=== PATIENT | female | born 1990 | race Caucasian/White ===

== ENCOUNTER 2019-03-06 01:20 | Observation (INO) ==
[2019-03-06] MEDS ORDERED: 0.9 % Sodium Chloride 1,000 ML IVC SCH (04:45)
[2019-03-06] MEDS ORDERED: OXYCODONE Oral CONC 10 MG/0.5 ML ORAL.SYG SL PRN ×2 (05:00→16:21)
--- NOTE | 2019-03-06 06:40 | Acute Care Surgery H&P ---
<Timoteo Mederos N - Last Filed: 03/06/19 08:24> Date of Encounter: 03/06/19 Time of Encounter: 08:24 Assessment and Plan (1) Acute cholecystitis Current Visit: No Status: Acute -28-year-old female admitted who presented with abdominal pain, nausea, and vomiting was found to have evidence for acute cholecystitis on CT scan -Plan for laparoscopic cholecystectomy today -Patient has been NPO -Lab workup from outside hospital reveals hypokalemia at 3.2, will replete with IV potassium History of Present Illness Chief complaint: abdominal pain, nausea, vomiting HPI: Ms. Wolf is a 28 year old female who was transferred from outside hospital due to concerns for acute cholecysitits. Patient presented to the emergency department with a one-day history of abdominal pain, nausea, and vomiting. She states that this had happened approximately one week ago, however this episode did not remit. Patient reports that her pain is worse after eating. She has had constant nausea and has vomited 3-4 times. In the emergency department patient was found to be hemodynamically stable. Lab workup was generally unremarkable aside from mild anemia which is near her baseline. A CT abdomen annd pelvis was performed which was significant for gallbladder wall edema versus pericholecystic fluid raising concern for cholecystitis. Patient was transferred to [facility] for surgical evaluation and management. Past Med Surg Social Fam HX - Past Medical History Medical history: GERD, other Additional medical history: Genital Herpes, chronic back pain Psychiatric history: anxiety, bipolar, depression - Past Surgical History Additional surgical history: Filshie Clip - Social History Smoking Status: Current every day smoker Smokeless Tobacco Status: No Alcohol use: rarely Drug use: marijuana Medications and Allergies Acyclovir [Zovirax] 400 mg PO BID 09/13/16 [History] Allergy/AdvReac Type Severity Reaction Status Date / Time ciprofloxacin [From Cipro] Allergy Rash Verified 03/05/19 23:42 Review of Systems All systems PM: The remainder of the systems were reviewed and are negative - Constitutional no chills, no fever(s) - Cardiovascular no chest pain - Respiratory no dyspnea - Gastrointestinal abdominal pain, nausea, vomiting, no hematochezia, no melena - Integumentary no rash General Surgery Exam Initial Vital Signs Temp Pulse Resp BP Pulse Ox 98.4 F 50 16 105/71 99 03/06/19 05:20 03/06/19 05:20 03/06/19 05:20 03/06/19 05:20 03/06/19 05:20 - General physical appearance well developed, well nourished - Eyes PERRL, normal ocular movement - ENT normal pinna, normal nares - Neck trachea midline, no venous distension - Respiratory normal expansion, normal respiratory effort - Cardiovascular Cardiovascular exam: Present: RRR - Abdomen Abdomen general surgery: Present: bowel sounds present, soft, tender (Mild tenderness in the right upper quadrant without guarding or rigidity) - Integumentary Integumentary general surgery: Present: warm and dry - Musculoskeletal Present: normal posture - Psychiatric Psychiatric general surgery: Present: A&Ox3 Results - Labs All other labs normal. <Héctor Nielson F - Last Filed: 03/06/19 11:06> Date of Encounter: 03/06/19 History of Present Illness HPI: Ms. Wolf is a 28 year old female Review of Systems All systems PM: The remainder of the systems were reviewed and are negative General Surgery Exam Initial Vital Signs Temp Pulse Resp BP Pulse Ox 98.4 F 50 16 105/71 99 03/06/19 05:20 03/06/19 05:20 03/06/19 05:20 03/06/19 05:20 03/06/19 05:20 Results - Labs All other labs normal. - Attending Attestation I examined this patient and my medical decision-making was reviewed with the Resident Physician. I agree with the documented findings, disposition and treatment plan as described except to the extent set forth below.
[2019-03-06] MEDS ORDERED: Potassium Chloride 20 MEQ, Lidocaine 1% 2 ML in D5% in Water 250 ML IVPB ONE (06:56)
[2019-03-06] MEDS ORDERED: Ondansetron 4 MG/2 ML VIAL IVP PRN ×2 (08:00→16:21)
[2019-03-06] MEDS: cefOXitin 2,000 MG in Water for inj. (sterile) 20 ML 20 ML IVP SCH ×2 (08:12→17:01)
[2019-03-06] MEDS: Ipratropium/Albuterol Neb 3 ML IH SCH ×2 (11:12→11:57)
--- NOTE | 2019-03-06 11:24 | Discharge Summary ---
<Virginia Mcdonald - Last Filed: 03/06/19 11:21> Date of Encounter: 03/06/19 - Discharge Diagnosis (1) Acute cholecystitis Priority: Primary Status: Acute (2) Smoking history Priority: Secondary Status: Chronic General Surgery Exam Initial Vital Signs Temp Pulse Resp BP Pulse Ox 98.4 F 50 16 105/71 99 03/06/19 05:20 03/06/19 05:20 03/06/19 05:20 03/06/19 05:20 03/06/19 05:20 - Hospital Course Hospital course: Ms. Wolf is a 28 year old female Time spent discussing smoking cessation with patient: 3 to 10 minutes - Time Spent with Patient Total time spent providing and/or coordinating discharge services: - Discharge Medications Prescriptions: New Docusate Sodium [Colace] 100 mg PO BID PRN #30 capsule PRN Reason: Contstipation Ibuprofen 800 mg PO Q8H PRN #30 tablet PRN Reason: Postsurgical pain OxyCODONE/APAP 5/325 [Percocet 5/325 MG] 1 each PO Q6HR PRN 7 Days #28 tablet PRN Reason: Pain Ondansetron ODT [Zofran ODT] 4 mg SL Q4HR PRN #15 tab.rapdis PRN Reason: Postsurgical nausea Continued Sulindac 200 mg PO TID PRN PRN Reason: Pain Acyclovir [Zovirax] 400 mg PO BID Home Medications: Acyclovir [Zovirax] 400 mg PO BID 09/13/16 [History] Docusate Sodium [Colace] 100 mg PO BID PRN #30 capsule 03/06/19 [Rx] Ibuprofen 800 mg PO Q8H PRN #30 tablet 03/06/19 [Rx] Ondansetron ODT [Zofran ODT] 4 mg SL Q4HR PRN #15 tab.rapdis 03/06/19 [Rx] OxyCODONE/APAP 5/325 [Percocet 5/325 MG] 1 each PO Q6HR PRN 7 Days #28 tablet 03/06/19 [Rx] Sulindac 200 mg PO TID PRN 03/06/19 [History] Allergies/Adverse Reactions: Allergy/AdvReac Type Severity Reaction Status Date / Time ciprofloxacin [From Cipro] Allergy Rash Verified 03/06/19 12:49 Date of admission: 03/06/19 04:00 Primary care physician: Angi Núñez CNP Consults: 03/06/19 04:43 Consult to Nutrition [CONS] Routine Comment: Consulting Provider: NUTRITION Reason for Dietary Consult: MST Score Discharging clinician: Héctor Vega Anticipated date of discharge: 03/06/19 - Patient Status Disposition: Home, Self-Care Condition: Good Functional capacity at discharge: independent ambulation Overall status at discharge: patient is progressing back to baseline - Discharge Instructions Instructions: Laparoscopic Cholecystectomy (DC) Follow Up With: Kirill Schroeder MD [Partnered Physician] - 03/27/19 8:30 am Angi Núñez CNP [Primary Care Provider] - - Diet and Activity Activity: increase activity as tolerated Diet: advance to your usual diet <Héctor Nielson - Last Filed: 03/06/19 15:54> Orders not resulted at time of discharge: Pending orders 03/06/19 15:01 Surgical Pathology [PTH] Routine Date of Encounter: 03/06/19 Time of Encounter: 15:50 General Surgery Exam Initial Vital Signs Temp Pulse Resp BP Pulse Ox 98.4 F 50 16 105/71 99 03/06/19 05:20 03/06/19 05:20 03/06/19 05:20 03/06/19 05:20 03/06/19 05:20 - Hospital Course Hospital course: Ms. Wolf is a 28 year old female - Time Spent with Patient Total time spent providing and/or coordinating discharge services: Date of admission: 03/06/19 04:00 Primary care physician: Angi Núñez CNP Consults: 03/06/19 04:43 Consult to Nutrition [CONS] Routine Comment: Consulting Provider: NUTRITION Reason for Dietary Consult: MST Score
--- NOTE | 2019-03-06 13:07 | Anesthesia Evaluation PreOp ---
Date of Encounter: 03/06/19 Time of Encounter: 13:00 - Past History Planned Operation: Lap Cholecystectomy Cardiac History: Denies any Significant Hx Pulmonary History: Smoker CIRCUS TRAINER History: Denies Any Significant HX Other Medical History: GERD, Other (Anxiety) Anesthesia History: No Prior Anesthetic Complications : No Test: Negative Alcohol Use: rarely Drug use: marijuana Medications and Allergies Acyclovir [Zovirax] 400 mg PO BID 09/13/16 [History] Docusate Sodium [Colace] 100 mg PO BID PRN #30 capsule 03/06/19 [Rx] Ibuprofen 800 mg PO Q8H PRN #30 tablet 03/06/19 [Rx] Ondansetron ODT [Zofran ODT] 4 mg SL Q4HR PRN #15 tab.rapdis 03/06/19 [Rx] OxyCODONE/APAP 5/325 [Percocet 5/325 MG] 1 each PO Q6HR PRN 7 Days #28 tablet 03/06/19 [Rx] Sulindac 200 mg PO TID PRN 03/06/19 [History] Allergy/AdvReac Type Severity Reaction Status Date / Time ciprofloxacin [From Cipro] Allergy Rash Verified 03/06/19 12:49 - Meds/Allergy Pre-op Review Medications Reviewed: Yes Allergies Reviewed: Yes Beta Blockers on Current Med List: No Anesthesia Results - Labs Laboratory Tests 03/05/19 03/06/19 03/06/19 23:51 00:00 00:00 Hgb 10.2 L Hct 32.5 L Plt Count 357 Sodium 135 L Potassium 3.2 L Urine Test Negative Anesthesia Exam O2 Sat Height 1.7 m Weight 71.6 kg O2 Sat by Pulse Oximetry 100 O2 Sat by Pulse Oximetry 98 O2 Sat by Pulse Oximetry 99 Vital Signs Temp Pulse Resp BP Pulse Ox 98.4 F 50 16 105/71 99 03/06/19 05:20 03/06/19 05:20 03/06/19 05:20 03/06/19 05:20 03/06/19 05:20 Height: 5'7 Weight: 157 lbs NPO (# of Hours): MN Pain Scale: 0 - HEENT Pupil (Motor): Pupils equal, EOMI Mallampati: II Teeth: Edentulous (no upper dentition) Oral Opening: Greater than 3 - CIRCUS TRAINER LOC: Oriented CIRCUS TRAINER Motor: Normal RUE, Normal LUE, Normal RLE, Normal LLE, Normal Face CIRCUS TRAINER Sensory: Normal: RUE, LUE, RLE, LLE, Face - Cardiac Rhythm: Regular Murmur: None JVD: No Carotid Bruit: No - Pulmonary Breath Sounds: bilateral Clear Respiratory Effort: Symmetrical Anesthesia Assess/Plan ASA Score: 2 Level of consciousness: Cooperative, Oriented Anesthetic Plan: General Autologous Blood: No Monitoring Plan: Standard Monitors Recovery Plan: PACU (Discussed GA, agrees to proceed)
[2019-03-06] MEDS ORDERED: *HR* HYDROmorphone (PF) 1 MG/ML SYRINGE IVP PRN (13:08)
[2019-03-06] MEDS ORDERED: *HR* Labetalol 20 MG/4 ML SYRINGE IVP PRN (13:08)
[2019-03-06] MEDS ORDERED: *HR* OxyCODONE Immed Rel 5 MG TABLET PO PRN (13:08)
[2019-03-06] MEDS ORDERED: Famotidine 20 MG/2 ML VIAL ONE (13:11)
[2019-03-06] MEDS ORDERED: Acetaminophen IV 1,000 MG/100 ML INFUS..BTL ONE (13:11)
[2019-03-06] MEDS ORDERED: Lidocaine -MPF 4% 5 ML AMPUL ONE (13:16)
[2019-03-06] MEDS ORDERED: *HR* Midazolam HCl 5 MG/5 ML VIAL IVP ONE (13:25)
[2019-03-06] MEDS ORDERED: *HR* Midazolam HCl 2 MG/2 ML VIAL ONE (13:25)
[2019-03-06] MEDS ORDERED: *HR* FentaNYL (PF) 100 MCG/2 ML VIAL ONE (13:26)
[2019-03-06] MEDS ORDERED: *HR* Propofol 200 MG/20 ML VIAL IVP ONE (13:26)
[2019-03-06] MEDS ORDERED: Lidocaine -MPF 2% 2 ML VIAL ONE (13:28)
[2019-03-06] MEDS ORDERED: Ondansetron 4 MG/2 ML VIAL ONE (13:29)
[2019-03-06] MEDS ORDERED: *HR* Rocuronium Bromide 50 MG/5 ML VIAL ONE (13:29)
[2019-03-06] MEDS ORDERED: Dexamethasone 4 MG/ML VIAL ONE ×2 (13:29→16:54)
[2019-03-06] MEDS ORDERED: Neostigmine Methylsulfate 3 MG/3 ML SYRINGE ONE (13:31)
[2019-03-06] MEDS ORDERED: Bupivacaine/EPI 1:200k 0.5%PF 30 ML VIAL ONE (13:33)
[2019-03-06] MEDS ORDERED: Isovue-300 50 ML VIAL ONE (13:50)
[2019-03-06] MEDS ORDERED: EPHEDrine 50 MG/ML VIAL ONE (14:04)
[2019-03-06] MEDS ORDERED: *HR* HYDROMORPHONE 2 MG/ML VIAL ONE (14:32)
--- NOTE | 2019-03-06 15:56 | Anesthesia Evaluation Post Op ---
Date of Encounter: 03/06/19 Time of Encounter: 15:00 - Vital Signs Vital Signs: Vital Signs/O2 Sat/Glucose, Most Current Temp Pulse Resp BP Pulse Ox 03/06/19 15:46 60 18 105/63 97 03/06/19 15:36 55 13 118/71 97 03/06/19 15:26 98.0 F 94 20 135/88 100 - Lungs Lungs: Clear Ascult./Percussion - Airway Airway: Non-obstructed - Cardiovascular Regular Rate - Pain Pain Scale: 1 - Nausea Vomiting Nausea Vomiting: Not Present - Hydration Hydration: Ice chips - Discharge PostOp Status: Transfer Patient to floor
--- NOTE | 2019-03-06 15:57 | Operative Note ---
Date of procedure: 03/06/19 Pre-op diagnosis: acute cholecystitis Post-op diagnosis: same Procedure: Laparoscopic cholecystectomy Anesthesia: GETA Surgeon: Héctor Vega Was there an automobile mechanic assistant present: No Estimated blood loss (cc): 75 Specimen: gallbladder Condition: stable Disposition: PACU Procedure in Detail: This 28 y/o was taken to the operating room and placed in the supine position. Anterior abdominal wall prepped and draped in usual sterile fashion. A 2 cm incision was made in the infraumbilical area and subcutaneous tissues are dissected down to anterior rectus fascia. Fascia is grasped with a Rosa Elena clamp and stay sutures are placed. The fascia is divided. Posterior rectus fascia and peritoneum were elevated and divided in the same manner. Fadumo port is inserted and pneumoperitoneum was achieved. Patient was placed in reverse Trendelenburg position and rotated to the left. Three 5 mm ports are inserted in the right subcostal space under direct visualization after injection of 0.5% Marcaine. Exploration of the intra-abdominal cavity reveals . The gallbladder is grasped and retracted in cephalad direction. The gallbladder is grasped and retracted in the lateral direction. The cystic duct was carefully identified, circumferentially dissected, doubly clipped and divided between clips. The cystic artery is also carefully identified, circumferentially dissected, doubly clipped and divided between clips. The gallbladder is rese cted off the liver bed using electrocautery. Hemostasis was perfected using electrocautery. The gallbladder is removed from the intra-abdominal cavity using an Endo Catch bag. Copious irrigation was carried out in the gallbladder fossa and Garcia's pouch. Pneumoperitoneum was allowed to escape. All ports are removed under direct visualization. The fascia at the infraumbilical incision was closed using 0 Vicryl sutures. All skin incisions are closed using 4-0 Monocryl subcuticular stitches. Steri-Strips are placed. Sterile Band-Aids are placed. Patient tolerated procedure well was taken to PACU in good condition.
[2019-03-06] MEDS ORDERED: *HR* PHENYLEPHRINE 1,000 MCG/10 ML SYRINGE IVP ONE (16:48)
[2019-03-06] MEDS ORDERED: *HR* Phenylephrine 10 MG/ML VIAL ONE (16:49)
[2019-03-06] MEDS ORDERED: *HR* Heparin 5,000 UNIT/ML VIAL SQ SCH (18:00)
[2019-03-06 18:05] VITALS: BP 94/53
[2019-03-07] MEDS ORDERED: cefOXitin 2,000 MG in Water for inj. (sterile) 20 ML 20 ML IVP SCH
== END 2019-03-06 18:32 | disposition home or self-care (01) ==
LOC: 3ANU
PROVIDERS: ADMIT Surgery; ATTEND Surgery